=== PATIENT | female | born 1990 | race Hispanic/Latino ===

== ENCOUNTER 2017-10-21 08:39 | Emergency (ER) | payer SELFPAY ==
[2017-10-21 09:22] VITALS: BP 129/78
[2017-10-21 10:04] LABS: Basophils % (Auto) 0.4 % (0.0-1.8); Eosinophils % (Auto) 0.3 % (0.0-4.3); Hematocrit 40.8 % (30.3-42.9); Lymphocytes # (Auto) 2.5 K/mm3 (1.2-5.4); Lymphocytes % (Auto) 21.7 % (13.4-35.0); Mean Corpuscular HGB Conc 34 % (30-34); Mean Corpuscular Hemoglobin 31 pg (28-32); Mean Corpuscular Volume 90 fl (79-97); Monocytes # (Auto) 0.5 K/mm3 (0.0-0.8); Monocytes % (Auto) 4.5 % (0.0-7.3); Platelet Count 233 K/mm3 (140-440); Red Blood Count 4.55 M/mm3 (3.65-5.03); Red Cell Distribution Width 12.4 % (13.2-15.2)
[2017-10-21 10:24] LABS: Bacteria,Urine 1+ /HPF (Negative); Bilirubin,Urine NEG (Negative); Blood,Urine NEG (Negative); Color,Urine Yellow (Yellow); Mucus,Urine 2+ /HPF; Nitrite,Urine NEG (Negative); Urobilinogen,Urine < 2.0 mg/dL (<2.0)
[2017-10-21 10:26] LABS: HCG Qualitative,Urine Negative (Negative)
[2017-10-21 10:49] LABS: Alanine Aminotransferase 12 units/L (7-56); Albumin 4.6 g/dL (3.9-5); BUN/Creatinine Ratio 24; Blood Urea Nitrogen 12 mg/dL (7-17); Calcium 9.4 mg/dL (8.4-10.2); Hemolysis Index 15
[2017-10-21] MEDS ORDERED: TORADOL IV ONE (10:52)
[2017-10-21] MEDS ORDERED: BENADRYL IV ONE (10:52)
[2017-10-21] MEDS ORDERED: NACL 0.9% 1000 ML 1,000 ML IV ONE (10:52)
[2017-10-21] MEDS ORDERED: BENTYL IM ONE (10:52)
[2017-10-21] MEDS ORDERED: REGLAN IV ONE (10:52)
--- NOTE | 2017-10-21 10:59 | Emergency Department Report ---
ED General Adult HPI - General Chief complaint: Nausea/Vomiting/Diarrhea Stated complaint: N&V Time Seen by Provider: 10/21/17 10:51 Source: patient Mode of arrival: Ambulatory Limitations: No Limitations - History of Present Illness Initial comments: Patient is a 26-year-old white female with a history of chronic abdominal pain patient states seen and treated multiple times in different ERs for same last yesterday [facility] diagnosis generalized abdominal pain with nausea and vomiting patient states unable to see GI until next month on Pepcid And Zofran when necessary for nausea vomiting and belly pain o however patient has not taken medications vomiting all this is a chronic problem over the last 3 years patient states 15 and burning generalized all over chest pain shortness of breath no fever no chills , last menstrual cycle 3 weeks ago last by mouth intake yesterday as well as nausea vomiting 30 minutes ago. Onset/Timin -: month(s), unknown (chronic for past 3 yrs ) Location: abdomen Radiation: non-radiation Severity scale (0 -10): 5 Quality: burning, aching Consistency: constant Improves with: none Worsens with: none Associated Symptoms: nausea/vomiting - Related Data Previous Rx's Medication Instructions Recorded Last Taken Type Pantoprazole [Protonix TAB] 40 mg PO QDAY #30 tablet 03/25/16 Unknown Rx Promethazine [Phenergan TAB] 25 mg PO Q6HR PRN #30 tab 03/25/16 Unknown Rx Sulfamethoxazole/Trimethoprim 1 each PO BID #6 tablet 03/25/16 Unknown Rx [Bactrim DS TAB] Dicyclomine [Bentyl] 10 mg PO QID PRN #30 capsule 10/21/17 Unknown Rx Famotidine [Pepcid] 20 mg PO BID #60 tablet 10/21/17 Unknown Rx Promethazine [Phenergan SUPPOS] 25 mg PA BID PRN #10 supp.rect 10/21/17 Unknown Rx Allergies Allergy/AdvReac Type Severity Reaction Status Date / Time No Known Allergies Allergy Unverified 08/20/15 10:57 ED Review of Systems ROS: Stated complaint: N&V Other details as noted in HPI Constitutional: denies: chills, fever Eyes: denies: eye pain, eye discharge, vision change ENT: denies: ear pain, throat pain Respiratory: denies: cough, shortness of breath, wheezing Cardiovascular: denies: chest pain, palpitations Endocrine: no symptoms reported Gastrointestinal: abdominal pain. denies: nausea, vomiting, diarrhea, constipation, hematemesis, melena, hematochezia Genitourinary: denies: urgency, dysuria, discharge Musculoskeletal: denies: back pain, joint swelling, arthralgia Skin: denies: rash, lesions Neurological: denies: headache, weakness, paresthesias Psychiatric: denies: anxiety, depression Hematological/Lymphatic: denies: easy bleeding, easy bruising ED Past Medical Hx - Past Medical History Previous Medical History?: Yes Additional medical history: Chronic Epigastric Pain - Surgical History Past Surgical History?: No - Social History Smoking Status: Current Some Day Smoker Substance Use Type: Marijuana, Non Opiate Pain, Prescribed - Medications Home Medications: Home Medications Medication Instructions Recorded Confirmed Last Taken Type Pantoprazole [Protonix TAB] 40 mg PO QDAY #30 tablet 03/25/16 Unknown Rx Promethazine [Phenergan TAB] 25 mg PO Q6HR PRN #30 tab 03/25/16 Unknown Rx Sulfamethoxazole/Trimethoprim 1 each PO BID #6 tablet 03/25/16 Unknown Rx [Bactrim DS TAB] Dicyclomine [Bentyl] 10 mg PO QID PRN #30 capsule 10/21/17 Unknown Rx Famotidine [Pepcid] 20 mg PO BID #60 tablet 10/21/17 Unknown Rx Promethazine [Phenergan SUPPOS] 25 mg PA BID PRN #10 supp.rect 10/21/17 Unknown Rx ED Physical Exam - General Limitations: No Limitations General appearance: alert, in no apparent distress, anxious - Head Head exam: Present: atraumatic, normocephalic - Eye Eye exam: Present: normal appearance, PERRL, EOMI - ENT ENT exam: Present: mucous membranes moist, TM's normal bilaterally - Expanded ENT Exam Expanded Mouth exam: Present: tongue normal. Absent: tongue elevation Throat exam: Positive: tonsillar erythema - Neck Neck exam: Present: normal inspection, full ROM. Absent: lymphadenopathy, thyromegaly - Respiratory Respiratory exam: Present: normal lung sounds bilaterally. Absent: respiratory distress, wheezes, rhonchi, chest wall tenderness - Cardiovascular Cardiovascular Exam: Present: regular rate, normal rhythm, normal heart sounds. Absent: systolic murmur, diastolic murmur, rubs, gallop - GI/Abdominal GI/Abdominal exam: Present: soft, hyperactive bowel sounds. Absent: distended, tenderness, guarding, rebound, rigid, organomegaly, mass, bruit, pulsatile mass , hernia - Expanded GI/Abdominal Exam Expanded GI/Abdominal exam: Absent: psoas sign, obturator sign, heel tap sign, Lee's sign, Rovsing's sign, tenderness at Mcbur[place]'s Point, ascites - Rectal Rectal exam: Present: deferred - Extremities Exam Extremities exam: Present: normal inspection - Back Exam Back exam: Present: normal inspection, full ROM. Absent: tenderness, CVA tenderness (R), CVA tenderness (L), muscle spasm, paraspinal tenderness, vertebral tenderness - Neurological Exam Neurological exam: Present: alert, oriented X3, CN II-XII intact, normal gait - Psychiatric Psychiatric exam: Present: normal affect, normal mood - Skin Skin exam: Present: warm, dry, intact, normal color. Absent: rash ED Course Vital Signs 10/21/17 09:18 Temperature 97.4 F L Pulse Rate 70 Respiratory 20 Rate Blood Pressure 129/78 O2 Sat by Pulse 99 Oximetry ED Medical Decision Making - Lab Data Result diagrams: 10/21/17 09:48 10/21/17 09:48 - Medical Decision Making Patient is a 26-year-old white female with a history of chronic abdominal pain patient states seen and treated multiple times in different ERs for same last yesterday [facility] diagnosis generalized abdominal pain with nausea and vomiting patient states unable to see GI until next month on Pepcid And Zofran when necessary for nausea vomiting and belly pain o however patient has not taken medications vomiting all this is a chronic problem over the last 3 years patient states 15 and burning generalized all over chest pain shortness of breath no fever no chills , last menstrual cycle 3 weeks ago last by mouth intake yesterday as well as nausea vomiting 30 minutes ago. pt appears anxious nad, nontoxic, abdominal exam: bs hyperactive, abd soft nontender no rebound no bruit no hernia no signs labs noted Cmp:normal , cbc: wbc:11.5, ua:normal hcg: negative , plan hydrate, reglan, NS, ketorlac, bentyl, will dc to self after po challenge, pt with subjective nausea and vomiting , rx for phenergan supp., pt is now tolerating po challenge with liquids, plan: dc to self with rx for bentyl, reglan, benadryl and prn phenergan supp and follow up [facility] in 2-3 days, pt has previous appt with same but did not present for appointment , pt counseled on importance of adherence with treatment regimen, pt verbalized agreement and understanding of treatment plan. pt agrees to follow up with GI for this chronic problem of last 3 years. Critical care attestation.: If time is entered above; I have spent that time in minutes in the direct care of this critically ill patient, excluding procedure time. ED Disposition Clinical Impression: Nausea and vomiting in adult Disposition: DC-01 TO HOME OR SELFCARE Is pt being admited?: No Does the pt Need Aspirin: No Condition: Stable Instructions: Abdominal Pain (ED), Acute Nausea and Vomiting (ED) Prescriptions: Dicyclomine [Bentyl] 10 mg PO QID PRN #30 capsule PRN Reason: Spasms Famotidine [Pepcid] 20 mg PO BID #60 tablet Promethazine [Phenergan SUPPOS] 25 mg PA BID PRN #10 supp.rect PRN Reason: Vomiting Referrals: KADIE MARTIN MD [Staff Physician] - 3-5 Days Forms: Work/School Release Form(ED) Time of Disposition: 13:05
[2017-10-21] MEDS ORDERED: PHENERGAN PR ONE (12:45)
== END 2017-10-21 13:29 | disposition home or self-care (01) ==
LOC: ED 08:39
DX: R11.2 Nausea with vomiting, unspecified (principal); R10.84 Generalized abdominal pain; F17.200 Nicotine dependence, unspecified, uncomplicated
CPT/HCPCS: 36415; 80053; 81001; 81025; 85025; 96361; 96372; 96374; 96375; 99283; J0500; J1200; J1885; J2765; J7030; 96360

== ENCOUNTER 2018-05-06 13:47 | Emergency (ER) | payer SELFPAY ==
[2018-05-06] MEDS ORDERED: REGLAN ONE (14:40)
[2018-05-06 14:41] VITALS: BP 120/49
[2018-05-06] MEDS ORDERED: REGLAN IM ONE (14:45)
[2018-05-06] MEDS ORDERED: ZOFRAN IV ONE (16:32)
[2018-05-06] MEDS ORDERED: NACL 0.9% 1000 ML 1,000 ML IV ONE (16:32)
--- NOTE | 2018-05-06 16:34 | Emergency Department Report ---
ED Abdominal Pain HPI - General Chief Complaint: Abdominal Pain Stated Complaint: ABD PAIN Time Seen by Provider: 05/06/18 16:16 Source: patient Mode of arrival: Ambulatory Limitations: No Limitations - History of Present Illness Initial Comments: 27-year-old female past medical history dyspepsia, chronic epigastric pain presents with complaint of acute on chronic nausea vomiting and epigastric pain. Patient is awake alert and oriented 3 fully lucid subjective fever and chills reported. Denies increased urinary frequency or vaginal discharge. Patient states she has a history of recurrent abdominal pain for which she sees an outpatient general administrator. MD Complaint: abdominal pain Onset/Timin -: days(s) Location: periumbilical, epigastric Radiation: epigastric Migration to: periumbilical, epigastric Severity: moderate Severity scale (0 -10): 6 Quality: aching Consistency: intermittent Associated Symptoms: denies other symptoms - Related Data Previous Rx's Medication Instructions Recorded Last Taken Type Pantoprazole [Protonix TAB] 40 mg PO QDAY #30 tablet 03/25/16 Unknown Rx Promethazine [Phenergan TAB] 25 mg PO Q6HR PRN #30 tab 03/25/16 Unknown Rx Sulfamethoxazole/Trimethoprim 1 each PO BID #6 tablet 03/25/16 Unknown Rx [Bactrim DS TAB] Dicyclomine [Bentyl] 10 mg PO QID PRN #30 capsule 10/21/17 Unknown Rx Famotidine [Pepcid] 20 mg PO BID #60 tablet 10/21/17 Unknown Rx Promethazine [Phenergan SUPPOS] 25 mg ID BID PRN #10 supp.rect 10/21/17 Unknown Rx Allergies Allergy/AdvReac Type Severity Reaction Status Date / Time No Known Allergies Allergy Unverified 08/20/15 10:57 ED Review of Systems ROS: Stated complaint: ABD PAIN Other details as noted in HPI Constitutional: denies: chills, fever Eyes: denies: eye pain, eye discharge, vision change ENT: denies: ear pain, throat pain Respiratory: denies: cough, shortness of breath, wheezing Cardiovascular: denies: chest pain, palpitations Endocrine: no symptoms reported Gastrointestinal: denies: abdominal pain, nausea, diarrhea Genitourinary: as per HPI. denies: urgency, dysuria, discharge Musculoskeletal: denies: back pain, joint swelling, arthralgia Skin: denies: rash, lesions Neurological: denies: headache, weakness, paresthesias Psychiatric: denies: anxiety, depression Hematological/Lymphatic: denies: easy bleeding, easy bruising ED Past Medical Hx - Past Medical History Previous Medical History?: Yes Additional medical history: Chronic Epigastric Pain - Surgical History Past Surgical History?: No - Social History Smoking Status: Never Smoker Substance Use Type: None - Medications Home Medications: Home Medications Medication Instructions Recorded Confirmed Last Taken Type Pantoprazole [Protonix TAB] 40 mg PO QDAY #30 tablet 03/25/16 Unknown Rx Promethazine [Phenergan TAB] 25 mg PO Q6HR PRN #30 tab 03/25/16 Unknown Rx Sulfamethoxazole/Trimethoprim 1 each PO BID #6 tablet 03/25/16 Unknown Rx [Bactrim DS TAB] Dicyclomine [Bentyl] 10 mg PO QID PRN #30 capsule 10/21/17 Unknown Rx Famotidine [Pepcid] 20 mg PO BID #60 tablet 10/21/17 Unknown Rx Promethazine [Phenergan SUPPOS] 25 mg ID BID PRN #10 supp.rect 10/21/17 Unknown Rx ED Physical Exam - General Limitations: No Limitations General appearance: alert, in no apparent distress - Head Head exam: Present: atraumatic, normocephalic - Eye Eye exam: Present: normal appearance, PERRL, EOMI - ENT ENT exam: Present: mucous membranes moist - Neck Neck exam: Present: normal inspection - Respiratory Respiratory exam: Present: normal lung sounds bilaterally. Absent: respiratory distress - Cardiovascular Cardiovascular Exam: Present: regular rate, normal rhythm. Absent: systolic murmur, diastolic murmur, rubs, gallop - GI/Abdominal GI/Abdominal exam: Present: soft (slight epigastric tenderness on palpation), normal bowel sounds - Extremities Exam Extremities exam: Present: normal inspection - Back Exam Back exam: Present: normal inspection - Neurological Exam Neurological exam: Present: alert, oriented X3 - Psychiatric Psychiatric exam: Present: normal affect, normal mood - Skin Skin exam: Present: warm, dry, intact, normal color. Absent: rash ED Course Vital Signs 05/06/18 05/06/18 05/06/18 14:37 17:16 17:28 Temperature 98.1 F Pulse Rate 76 Respiratory 18 18 18 Rate Blood Pressure 120/49 O2 Sat by Pulse 100 Oximetry 05/06/18 17:29 Temperature Pulse Rate Respiratory 18 Rate Blood Pressure O2 Sat by Pulse 100 Oximetry ED Medical Decision Making - Medical Decision Making A/P: Epigastric pain 1-patient stated she felt symptomatically better but needed to leave before lab work could be done because of personal obligations at home 2-patient signed out AGAINST MEDICAL ADVICE 3-I advised the patient's return to the ED [facility] for lab work and further evaluation. Advised the patient that if she leaves before workup can be completed because potentially be an underlying lethal condition that we have not yet clinically diagnosed. I advised her that she could potentially have a dangerous condition and that we need more time to evaluate her. Patient stated she understood this and still wished to leave at this time. She was awake alert and oriented 3 during the conversation. Patient stated she would do so after completing her personal obligations Critical care attestation.: If time is entered above; I have spent that time in minutes in the direct care of this critically ill patient, excluding procedure time. ED Disposition Clinical Impression: Left against medical advice Abdominal pain Qualifiers: Abdominal location: periumbilical Qualified Code(s): R10.33 - Periumbilical pain Disposition: DC-07 LEFT AGAINST MED ADVICE Is pt being admited?: No Does the pt Need Aspirin: No Condition: Undetermined Instructions: Abdominal Pain (ED) Referrals: [facility] [Provider Group] - 3-5 Days Forms: AMA Form Time of Disposition: 18:01
[2018-05-06] MEDS ORDERED: PEPCID IV ONE ×2 (16:40→16:57)
[2018-05-06 16:56] LABS: HCG Qualitative,Urine Negative (Negative)
[2018-05-06 17:00] LABS: Bilirubin,Urine NEG (Negative); Blood,Urine NEG (Negative); Color,Urine Yellow (Yellow); Mucus,Urine 2+ /HPF; Urobilinogen,Urine < 2.0 mg/dL (<2.0)
[2018-05-06] MEDS ORDERED: MORPHINE IV ONE (17:07)
== END 2018-05-06 18:07 | disposition left against medical advice (07) ==
LOC: ED 13:47
DX: R10.13 Epigastric pain (principal); R11.2 Nausea with vomiting, unspecified; R50.9 Fever, unspecified
CPT/HCPCS: 81001; 81025; 96361; 96372; 96374; 96375; 99282; J2270; J2405; J2765; J7030; 99283